=== PATIENT | male | born 1945 | race Caucasian/White ===

== ENCOUNTER 2017-02-16 11:00 | Emergency (ER) | payer MEDICARE, BC ==
[2017-02-16] MEDS ORDERED: Sodium Chloride 0.9% 1,000 ML IV ONE ×2 (11:28→12:45)
--- NOTE | 2017-02-16 11:56 | EDM.PDOC ---
ED HPI GENERAL MEDICAL PROBLEM - General Chief Complaint: Syncope Stated Complaint: BLACK OUT SPELLS Time Seen by Provider: 02/16/17 11:30 Source of Information: Reports: Patient History Limitations: Reports: No Limitations - History of Present Illness INITIAL COMMENTS - FREE TEXT/NARRATIVE: Patient presents for evaluation of fainting episode. He tells me he had gotten up and was starting to get dressed when he fainted. He denies head injury and it sounds like he had a somewhat controlled fall. Denies any pain of head, neck , back or extremities. On January [address] of abdomen that found a mass near the pancreas. Yesterday he had the second of two biopsies (to confirm/ruleout pancreatic cancer) and afterward was noted to be hypotensive. He had never had low BP before he told them. He denies vomiting but had diarrhea a few days ago for a day. He doesn't know how much water he drinks as he sips throughout the day. He denies ever being a smoker or heavy drinker but drank socially until two years ago. Denies hepatitis or other liver problems. Denies diabetes or heart problems. Daughter is with him and says he seems a little bit confused sometimes recently: for example he told me that [place] a block from the hospital but it's actually about a mile. - Related Data Allergies Allergy/AdvReac Type Severity Reaction Status Date / Time Penicillins Allergy Anaphylactic Verified 02/16/17 11:26 Shock Social & Family History - Family History Cardiac: Reports: None Respiratory: Reports: None - Tobacco Use Smoking Status *Q: Never Smoker Second Hand Smoke Exposure: Yes - Caffeine Use Caffeine Use: Reports: Soda - Recreational Drug Use Recreational Drug Use: No ED ROS GENERAL - Review of Systems Review Of Systems: See Below Constitutional: Denies: Fever, Chills HEENT: Denies: Throat Pain, Vision Change Respiratory: Denies: Shortness of Breath, Cough Cardiovascular: Reports: Syncope. Denies: Chest Pain, Edema GI/Abdominal: Reports: Abdominal Pain (right-sided started 8 weeks ago; being worked up by PCP), Diarrhea (a few days ago). Denies: Vomiting : Denies: Dysuria, Flank Pain Musculoskeletal: Denies: Neck Pain, Shoulder Pain, Arm Pain, Back Pain, Hand Pain, Leg Pain, Foot Pain Skin: Reports: Jaundice, Dryness. Denies: Cyanosis, Mottled, Pallor, Diaphoresis, Bruising, Rash, Erythema, Wound Neurological: Reports: Syncope. Denies: Dizziness, Headache, Seizure, Trouble Speaking Psychiatric: Denies: Agitation, Anxiety - Physical Exam Exam: See Below Exam Limited By: No Limitations General Appearance: Alert, WD/WN, No Apparent Distress Eye Exam: Bilateral Eye: EOMI, Normal Inspection (full visual velez), PERRL Ears: Normal External Exam, Normal Canal, Hearing Grossly Normal, Normal TMs Nose: Normal Inspection, No Blood Throat/Mouth: Normal Inspection, Normal Lips, Normal Oropharynx, Normal Voice, No Airway Compromise Head Exam: Atraumatic, Normocephalic Neck: Normal Inspection, Supple, Non-Tender, Full Range of Motion. No: Carotid Bruit, Tender Lateral, Tender Midline Respiratory/Chest: No Respiratory Distress, Lungs Clear (slight crackles heard initially in lung bases but cleared with several deep breaths; likely atelectasis), Normal Breath Sounds, No Accessory Muscle Use Cardiovascular: Normal Peripheral Pulses, No Murmur, Tachycardia (mild but regular) GI/Abdominal: Normal Bowel Sounds, No Distention, Tender (RUQ and mid-epigastric ), Mass (either mass or hepatomegaly of RUQ). No: Rigid, Rebound Neuro Exam (Abbreviated): Alert, Oriented, CN II-XII Intact, Normal Cognition, No Motor/Sensory Deficits Back Exam: No: CVA Tenderness (L), CVA Tenderness (R) Extremities: Normal Inspection, Non-Tender, No Pedal Edema Psychiatric: Normal Affect, Normal Mood Skin Exam: Warm, Dry, Intact, No Rash, Jaundice Course - Vital Signs Last Recorded V/S: Last Vital Signs Temp 97.3 F 02/16/17 11:21 Pulse 113 H 02/16/17 11:28 Resp 22 H 02/16/17 11:28 BP 82/43 L 02/16/17 11:28 Pulse Ox 97 02/16/17 11:28 - Orders/Labs/Meds Orders: Active Orders 24 hr Category Date Time Status EKG Documentation Completion [RC] ASDIRECTED Care 02/16/17 11:43 Ordered BASIC METABOLIC PANEL,BMP [CHEM] Stat Lab 02/16/17 11:15 Received COMPREHENSIVE METABOLIC PN,CMP [CHEM] Stat Lab 02/16/17 11:42 Ordered UA W/MICROSCOPIC [URIN] Stat Lab 02/16/17 11:28 Uncollected Sodium Chloride 0.9% [Normal Saline] 1,000 ml Med 02/16/17 11:28 Active IV .BOLUS EKG 12 Lead [EK] Routine Ther 02/16/17 11:42 Ordered Medication Orders Sodium Chloride (Normal Saline) 1,000 mls @ 999 mls/hr IV .BOLUS ONE Stop: 02/16/17 12:28 Labs: Laboratory Tests 02/16/17 Range/Units 11:15 WBC 23.8 H (5.0-10.0) 10^3/uL RBC 3.97 L (4.50-6.00) 10^6/uL Hgb 11.7 L (13.0-17.0) g/dL Hct 34.6 L (40.0-52.0) % MCV 87.3 (82.0-92.0) fL MCH 29.6 (27.0-31.0) pg MCHC 33.9 (32.0-36.0) g/dL RDW 13.1 (11.5-14.5) % Plt Count 162 (150-300) 10^3/uL MPV 8.6 (7.4-10.4) fL Neut % (Auto) 89.9 H (50.0-70.0) % Lymph % (Auto) 9.4 L (20.0-40.0) % Victoria % (Auto) 0.6 L (2.0-8.0) % Eos % (Auto) 0.1 L (1.0-3.0) % Baso % (Auto) 0.0 (0.0-1.0) % Neut # (Auto) 21.5 H (2.5-7.0) 10^3/uL Lymph # (Auto) 2.2 (1.0-4.0) 10^3/uL Victoria # (Auto) 0.1 (0.1-0.8) 10^3/uL Eos # (Auto) 0.0 L (0.1-0.3) 10^3/uL Baso # (Auto) 0.0 (0.0-0.1) 10^3/uL Meds: Medications Generic Name Dose Route Start Last Admin Trade Name Freq PRN Reason Stop Dose Admin Sodium Chloride 1,000 mls @ 999 mls/hr 02/16/17 11:28 Normal Saline IV 02/16/17 12:28 .BOLUS ONE - Re-Assessments/Exams Free Text/Narrative Re-Assessment/Exam: 02/16/17 12:34 WBC 24 with 90% neutrophils and elevated liver enzymes, BUN and Creatinine. Getting CXR and still waiting on UA since he hasn't been able to urinate. Getting blood cultures. Reviewed CT abdomen results from 01/30 showing upper abdominal mass adjacent to the pancreatic head and the liver. 02/16/17 12:45 Orthostatic BP following one liter of saline reveals low BP but consistent with positions. Not lightheaded with orthostatic checks. 02/16/17 15:58 Patient is improved following two liters of IV saline. Had been waiting for patient to be able to give urine sample which he did following the two liters of saline. There is bacteria and bilirubin but no nitrites or leukocyte esterase (not a clean catch). Discussed case with Dr. Fallon (hospitalist) at [facility] in [place]. He accepted for transfer to ICU and wants Levaquin and Metronidazole started now. Discussed findings and treatment plan with patient and his daughter who agree with this plan. Patient stable at discharge and jaundice in face is improved. Departure - Departure Time of Disposition: 15:55 Disposition: DC/Tfer to [facility] 02 Condition: fair Clinical Impression: Neutrophilic leukocytosis, Hypovolemia dehydration, Pancreatic mass, Liver enzyme elevation Hypotension Qualifiers: Hypotension type: unspecified hypotension type Qualified Code(s): I95.9 - Hypotension, unspecified Acute renal failure Qualifiers: Acute renal failure type: unspecified Qualified Code(s): N17.9 - Acute kidney failure, unspecified - Discharge Information Forms: ED Department Discharge - My Orders Last 24 Hours: My Active Orders 02/16/17 11:15 BASIC METABOLIC PANEL,BMP [CHEM] Stat 02/16/17 11:28 UA W/MICROSCOPIC [URIN] Stat Sodium Chloride 0.9% [Normal Saline] 1,000 ml IV .BOLUS 02/16/17 11:42 COMPREHENSIVE METABOLIC PN,CMP [CHEM] Stat EKG 12 Lead [EK] Routine 02/16/17 11:43 EKG Documentation Completion [RC] ASDIRECTED - Assessment/Plan Last 24 Hours: My Active Orders 02/16/17 11:15 BASIC METABOLIC PANEL,BMP [CHEM] Stat 02/16/17 11:28 UA W/MICROSCOPIC [URIN] Stat Sodium Chloride 0.9% [Normal Saline] 1,000 ml IV .BOLUS 02/16/17 11:42 COMPREHENSIVE METABOLIC PN,CMP [CHEM] Stat EKG 12 Lead [EK] Routine 02/16/17 11:43 EKG Documentation Completion [RC] ASDIRECTED
[2017-02-16] MEDS ORDERED: Levofloxacin 500 MG Tab PO ONE (15:53)
[2017-02-16] MEDS ORDERED: metroNIDAZOLE/Normal Saline 500 MG in Premix Bag 1 BAG IV ONE (15:53)
[2017-02-16 16:26] VITALS: BP 95/49
== END 2017-02-16 16:40 ==
LOC: KA.ED 11:00
DX: I95.9 Hypotension, unspecified (principal); D72.828 Other elevated white blood cell count; E86.1 Hypovolemia; K86.9 Disease of pancreas, unspecified; R94.5 Abnormal results of liver function studies; N17.9 Acute kidney failure, unspecified; Z88.0 Allergy status to penicillin
CPT/HCPCS: 36415; 70450; 71020; 80053; 81001; 85025; 87040; 87075; 87077; 87086; 87186; 93005; 96361; 96365; 99283; 99285; A9270; J7030